=== PATIENT | female | born 1995 ===

== ENCOUNTER 2017-09-28 13:00 | Emergency (ER) | payer SELFPAY ==
--- NOTE | 2017-09-28 14:29 | OBHP ---
Datetime: 09/28/2017 14:24 IP Adm Impression: Term, intrauterine IP Admit Plan: Discharge home Admit Comment, IP Provider: at 39.6wek came with c/o ctxs started 11 pm, irrg , no vb,lof+fm.pt never went to any prental care. obhcx 1 x pmh de med pnv all nkda psh de soch de ve closed//-3 a/p at abdominal pain dc home labor given po hy f/u in clinic in 1-2days Pelvic Type - PN: Adequate Extremities - PN: Normal Abdomen - PN: Normal Back - PN: Normal Breast - PN: Normal Lungs - PN: Normal Heart - PN: Normal Thyroid - PN: Normal Neurologic - PN: Normal HEENT - PN: Normal General - PN: Normal FHR - Baseline A Provider: 120 Contraction Comments Provider: irrg EGA AdmitDate IP: 39.6 Vital Signs Provider: Reviewed; Within Normal Limits IP Chief Complaint: Uterine contractions NICHD Variability Prov Fetus A: Moderate 6-25bpm NICHD Accel Fetus A IP Provider: 15X15 FHR Category Provider Fetus A: Category I Dilatation, Provider: 0 Effacement, Provider: 0 Station, Provider: -3 Genitourinary Exam: Normal DTRs - PN: Normal
--- NOTE | 2017-09-28 14:31 | OBDCSUM ---
Datetime: 09/28/2017 14:27 Discharged to, Provider: Home Follow up at, Provider: 1 day Follow up in weeks, Provider: clinic Disch Activity Restrictions: Minimize walking; Minimize stair-climbing; No sexual activity; Nothing in vagina - [place], tampons, douche Discharge Comment, Provider: dc home labor given po hy f/u in clinic in 1-2days Discharge Diagnosis Prov Other: false labor nst
== END 2017-09-28 14:40 | disposition home or self-care (01) ==
LOC: C.EROB 13:00
DX: O47.1 False labor at or after 37 completed weeks of gestation (principal); Z3A.39 39 weeks gestation of pregnancy

== ENCOUNTER 2017-09-29 07:40 | Inpatient (IN) | payer MEDICAID ==
[2017-09-29 08:58] VITALS: BMI 28.3
[2017-09-29] MEDS ORDERED: Lactated Ringer's 1,000 ML IV SCH (09:15)
[2017-09-29 09:52] LABS: BASO % 0.4 % (0.0-2.0); EOS % 0.1 % (0.0-4.0); HEMOGLOBIN 10.7 g/dL (11.0-16.0); LYMPH # 1.1 K/uL (1.0-4.3); LYMPH % 17.1 % (20.0-40.0); MEAN CELL VOLUME 91.6 fL (81.0-99.0); MEAN CORPUSCULAR HEMOGLOBIN 31.1 pg (27.0-31.0); MEAN CORPUSCULAR HGB CONC 33.9 g/dL (33.0-37.0); MEAN PLATELET VOLUME 10.6 fL (7.2-11.7); MONO # 0.3 K/uL (0.0-0.8); MONO % 4.8 % (0.0-10.0); NEUT # 4.9 K/uL (1.8-7.0); NEUT % 77.6 % (50.0-75.0); NRBC % 0.1 % (0.0-2.0); RBC 3.45 Mil/uL (3.80-5.20); RED CELL DISTRIBUTION WIDTH 13.7 % (11.5-14.5); WHITE BLOOD COUNT 6.3 K/uL (4.8-10.8)
[2017-09-29] MEDS ORDERED: Penicillin G 5 Million Unit Vial IVPB ONE ×2 (10:00→11:03)
[2017-09-29 10:08] LABS: ALBUMIN 3.4 g/dL (3.5-5.0); ALT/SGPT 15 U/L (9-52); AST/SGOT 22 U/L (14-36); BLOOD UREA NITROGEN 4 mg/dL (7-17); CALCIUM 8.7 mg/dl (8.6-10.4); GFR AFRICAN-AMERICAN > 60; GFR NON-AFRICAN AMERICAN > 60
[2017-09-29 10:35] LABS: BARBITURATES, UR NEGATIVE (NEGATIVE); BENZODIAZEPINES, UR NEGATIVE (NEGATIVE); OPIATES, UR NEGATIVE (NEGATIVE); PHENCYCLIDINE, UR NEGATIVE (NEGATIVE)
--- NOTE | 2017-09-29 11:22 | US ---
Date of service: 09/29/2017 PROCEDURE: Obstetrical ultrasound and limited biophysical profile examination HISTORY: Term COMPARISON: Not available TECHNIQUE: Transabdominal FINDINGS: Ultrasound examination demonstrates a single live intrauterine gestation in cephalic presentation. The heart rate is 133 beats per minute. A grossly normal quantity of amniotic fluid is visualized. The CORIE is 7.8 cm. A posterior placenta is identified. There is no evidence of placenta previa. The cervix is slightly shortened, measuring 2.3 cm in length. biometry yields a gestational age by ultrasound of 36 weeks 2 days. The KENNEDI by ultrasound is 10/25/2017. Estimated weight is 2894 g. Limited review of anatomy demonstrates a 4 chamber heart. A three-vessel umbilical cord is identified. The anterior abdominal wall is intact. Two normal kidneys are demonstrated without evidence of hydronephrosis. There is fluid distending the stomach and urinary bladder. No abnormality of the spine is evident. Umbilical arterial duplex Doppler evaluation demonstrates S/D ratio of 1.9, within normal limits. A limited biophysical profile examination yields a score of 8 out of 8. IMPRESSION: Single live intrauterine gestation in cephalic presentation. heart rate 133. No previa. Posterior placenta. Cervix shortened to 2.3 cm length. No gross anatomic abnormality. Normal biophysical profile score. Estimated weight 2894 g. KENNEDI 10/25/2017.
[2017-09-29 12:11] LABS: SQUAMOUS EPITHIAL 18 /hpf (0-5); URINE BACTERIA RARE (<OCC); URINE BILIRUBIN NEGATIVE (NEGATIVE); URINE BLOOD NEGATIVE (NEGATIVE); URINE CLARITY Hazy (Clear); URINE COLOR Yellow (YELLOW); URINE GLUCOSE (UA) NORMAL (Normal); URINE LEUKOCYTE ESTERASE TRACE Leu/uL (Negative); URINE PROTEIN 1+ mg/dL (NEGATIVE); URINE UROBILINOGEN NORMAL mg/dL (0.2-1.0)
[2017-09-29] MEDS ORDERED: Bupivacaine HCl/FentaNYL Cit 100 ML EPI ONE (12:28)
[2017-09-29] MEDS ORDERED: Penicillin G 5 Million Unit Vial IVPB SCH (14:00)
[2017-09-29] MEDS ORDERED: Oxytocin 30 UNIT 30 UNITS/500 ML BAG IV ONE (14:29)
[2017-09-29] MEDS ORDERED: Oxytocin 30 UNIT 30 UNITS/500 ML BAG IV SCH (14:30)
--- NOTE | 2017-09-29 14:44 | OBHP ---
Datetime: 09/29/2017 08:20 IP Adm Impression: Term, intrauterine ; Intact Membranes IP Admit Plan: Observation/Evaluation Admit Comment, IP Provider: 21 yo female with an IUP at 40 weeks per 23 weeks US done in [facility] with EDC 09/29/17 Came to this [place] 2 weeks ago and had only minimal PNC overthere Admits to adequate FM and denies LOF or vaginal bleeding Admit to CAROLINE, Draw WI labs and order OB US NST and Continuous Mnitoring Pelvic Type - PN: Adequate Extremities - PN: Normal Abdomen - PN: Normal Back - PN: Normal Breast - PN: Not Done Lungs - PN: Normal Heart - PN: Normal Thyroid - PN: Normal Neurologic - PN: Normal HEENT - PN: Normal General - PN: Normal Presentation-Admit: Vertex FHR - Baseline A Provider: 130 Membranes, Provider: Intact Contraction Comments Provider: Q 3-5 minutes Gestation - Est Wks by US: 40.0 EGA AdmitDate IP: 40.0 Vital Signs Provider: Reviewed IP Chief Complaint: Uterine contractions; Maternal discomfort; evaluation NICHD Variability Prov Fetus A: Moderate 6-25bpm NICHD Accel Fetus A IP Provider: 10X10 NICHD Decel Fetus A IP Provider: None Dilatation, Provider: 2 Effacement, Provider: 50 Station, Provider: -3 Genitourinary Exam: Normal DTRs - PN: Normal
[2017-09-29] MEDS ORDERED: Penicillin G Potassium 2.5 MU in Dextrose 5% In Water 50 ML IVPB SCH (16:00)
[2017-09-29 16:28] LABS: RAPID PLASMA REAGIN NONREACTIVE (NONREACTIVE)
--- NOTE | 2017-09-29 16:28 | OBADHP ---
Datetime: 09/29/2017 12:15 Admit Comment, IP Provider: 40 weeks per 23 weeks US OB US done here and revealed an IUP at about 36 3/7 weeks by size with CORIE 7.8 and BPP 8/8 Probable SGA vs IUGR and Low Amniotic fluid Index. Denies leaking of fluid VSS/Afebrile Early labor Admit for Vaginal delivery Will start Pitocin for Augmentation of labor in no major progress Pelvic Type - PN: Adequate Extremities - PN: Normal Abdomen - PN: Normal Back - PN: Normal Breast - PN: Not Done Lungs - PN: Normal Heart - PN: Normal Thyroid - PN: Normal Neurologic - PN: Normal HEENT - PN: Normal General - PN: Normal Presentation-Admit: Vertex FHR - Baseline A Provider: 130 Membranes, Provider: Intact Contraction Comments Provider: Q 2-4 mins Gestation - Est Wks by US: 40.0 IP Chief Complaint: Uterine contractions; Maternal discomfort NICHD Variability Prov Fetus A: Moderate 6-25bpm NICHD Accel Fetus A IP Provider: 10X10 FHR Category Provider Fetus A: Category I NICHD Decel Fetus A IP Provider: None Dilatation, Provider: 4 Effacement, Provider: 70 Station, Provider: -2 Genitourinary Exam: Normal DTRs - PN: Normal EGA AdmitDate IP: 40.0 IP Adm Impression: Term, intrauterine ; Intact Membranes IP Admit Plan: Admit to unit; Initiate labor protocol Datetime: 09/29/2017 08:20 Vital Signs Provider: Reviewed
--- NOTE | 2017-09-29 21:49 | OBDS ---
MATERNAL INFORMATION Provider Comments: of viable Male from SALVATORE position and over a Midline Episiotomy. Pedia trician present and Apgars 9 and 9 at 1 and 5 minutes. BW 8lbs 10 oz. Pt and both tolerated the procedure well and remained in S_S condition LABOR SUMMARY EDC: 09/29/2017 00:00 LABOR INFORMATION Onset of Labor: 09/29/2017 08:15 Group B Beta Strep: Not Done MEMBRANES Membranes Rupture Method: Artificial Amniotic Fluid Amount: None STAGES OF LABOR Stage 3 hrs: 0 Stage 3 min: 5 Total Time in Labor hrs: 12 Total Time in Labor min: 41 VAGINAL DELIVERY Episiotomy: Median Laceration Type: None Laceration Repair Note: 2-0 Vicryl utilized for repair with injection of 1 % Lidocaine for Local Ane sthesia and without complications. Sponge Count Correct: Yes Sharps Count Correct: Yes Count Comment: Correct BABY A INFORMATION Infant Delivery Date/Time: 09/29/2017 20:51 Method of Delivery: Vaginal Born in Route : No : N/A Forceps: N/A Vacuum Extraction: N/A Shoulder Dystocia : No SHOULDER DYSTOCIA BABY A Infant Delivery Date/Time: 09/29/2017 20:51 PRESENTATION/POSITION BABY A Presentation: Cephalic Cephalic Presentation: Vertex Vertex Position: Left Occipital Anterior Breech Presentation: N/A PLACENTA INFORMATION BABY A Placenta Delivery Time : 09/29/2017 20:56 INFORMATION BABY A Gestational Age at Delivery: 40.0 Gestational Status: Term Outcome : Liveborn Condition : Stable Sex: Male IDENTIFICATION/MEDS BABY A ID Band Number: [id number] Sensor Number: [id number] WEIGHT/LENGTH BABY A Birthweight (gms): 3920 Weight (lb): 8 Weight (oz): 10 Length Inches: 20.50 Infant Length cms: 52.1 CORD INFORMATION BABY A No. Cord Vessels: 3 Nuchal Cord : N/A Cord Blood Taken: Yes
[2017-09-30] MEDS ORDERED: Benzocaine/Menthol 20%-0.5% Topical Spray (60 ml) TOP PRN (00:41)
[2017-09-30] MEDS ORDERED: Oxycodone/Acetaminophen 5/325 mg Tab PO PRN (00:41)
[2017-09-30 08:42] LABS: HEMOGLOBIN 8.8 g/dL (11.0-16.0); MEAN CELL VOLUME 92.3 fL (81.0-99.0); MEAN CORPUSCULAR HGB CONC 33.6 g/dL (33.0-37.0); MEAN PLATELET VOLUME 9.7 fL (7.2-11.7); RBC 2.82 Mil/uL (3.80-5.20); RED CELL DISTRIBUTION WIDTH 13.9 % (11.5-14.5)
[2017-09-30 08:43] LABS: WHITE BLOOD COUNT 11.2 K/uL (4.8-10.8)
[2017-09-30] MEDS: Multiple Vitamins Tab PO SCH (09:55)
[2017-09-30] MEDS: Hydrocortisone 2.5% Rectal Cream(30 gm) PR SCH ×2 (09:57→18:16)
--- NOTE | 2017-09-30 11:08 | OBPPN ---
Datetime: 09/30/2017 10:53 PP Pain Prov: Within normal limits PP Nausea Prov: Denies PP Flatus Prov: Yes PP BM Prov: No PP Breasts Prov: Normal PP Heart Prov: Normal PP Lungs Prov: Normal PP Abdomen/Uterus Prov: Normal PP Lochia Prov: Normal PP Vulva/Perineum Prov: Normal PP CVA Tenderness Prov: Normal PP Extremities Prov: Normal PP C/S Incision Prov: Not Applicable PP Progress Prov: Normal PP Comments Phys Exam Prov: Breasts: no cracked nipples Perineum: healing episiotomy; minimally tneder; edema imporving. (+) external hemorrhoid Abdomen: Soft, Non distended. Fundus firm, mobile, non tender at umbilicus. Mild lochia rubra Extremities: no calf tenderness All other systems reviewed and are negative PP Impression Prov: Normal progression PP Plan Prov: Continue present management PP Progress Note Prov: Patietn received in room 454, ambulating. Reports perineal discomfort -improv ed with pain meds. exclusively. Ambulating; voiding without difficulty. (+) flatus; (-) BM. Denies nausea, vomiting P.E.: as above. Small, in NAD. Awake, alert, oriented to time, person and place. Pleasant and co operative. - PPD#1 H/H 8.8. 26.0; Rh (+) Assessment: PPD#1, 22 y.o. P2, S/P over midline episiotomy; external hemorrhoid - doing well. Afebrile, vital signs stable. Clinically stable Plan: 1) Continue present management 2) Start iron supplementaiton 3) Anticipate vaginal deliveyr 10/01/17 Vital Signs Provider PP: Reviewed; Within Normal Limits
--- NOTE | 2017-10-01 07:37 | OBPPN ---
Datetime: 10/01/2017 07:25 PP Pain Prov: Within normal limits PP Nausea Prov: Denies PP Flatus Prov: Yes PP Heart Prov: Normal PP Lungs Prov: Normal PP Abdomen/Uterus Prov: Normal PP Lochia Prov: Normal PP Extremities Prov: Normal PP Progress Prov: Normal PP Impression Prov: Normal progression PP Plan Prov: Continue present management PP Progress Note Prov: pt was seen at bed side, pain under control,no n.v, tolerating diet, passing flatus, locia improving. breast feeding every 2 hous. ppd#2 s/p cont pain management obnt post op care encourage ambulation Vital Signs Provider PP: Reviewed; Within Normal Limits
[2017-10-01] MEDS: Hydrocortisone 2.5% Rectal Cream(30 gm) PR SCH ×2 (09:33→10:00)
[2017-10-01] MEDS: Multiple Vitamins Tab PO SCH (09:41)
[2017-10-01 11:08] VITALS: O2SAT 99
[2017-10-02 08:33] VITALS: BP 95/54; PULSE 74; RESP 18; TEMP 98.4
[2017-10-02] MEDS ORDERED: Rubella Virus Vaccine Inj SC ONE (10:41)
[2017-10-02] MEDS ORDERED: Measles, Mumps, and Rubella 0.5 ML VIAL SC ONE (10:53)
[2017-10-02] MEDS: Multiple Vitamins Tab PO SCH (10:53)
[2017-10-02] MEDS: Hydrocortisone 2.5% Rectal Cream(30 gm) PR SCH (10:54)
[2017-10-02 11:42] LABS: HEMOGLOBIN 9.8 g/dL (11.0-16.0); MEAN CORPUSCULAR HEMOGLOBIN 31.4 pg (27.0-31.0); MEAN CORPUSCULAR HGB CONC 33.8 g/dL (33.0-37.0); MEAN PLATELET VOLUME 9.2 fL (7.2-11.7); RBC 3.12 Mil/uL (3.80-5.20); RED CELL DISTRIBUTION WIDTH 13.9 % (11.5-14.5); WHITE BLOOD COUNT 8.7 K/uL (4.8-10.8)
--- NOTE | 2017-10-02 18:18 | OBDCSUM ---
Datetime: 10/02/2017 13:15 Discharged to, Provider: Home Follow up at, Provider: gunjan [place] Instr Activity: Normal activity Disch Instr Diet: Regular Discharge Instructions, Provider: Routine instructions given Discharge Diagnosis, Provider: Term Delivered Discharge Time: 10/02/2017 14:00 Follow up in weeks, Provider: 6 weeks Disch Referrals: Professor Of Theatre Contraception discussed, Prov: Yes Disch Activity Restrictions: No lifting; Minimize stair-climbing; No sexual activity; Nothing in vag berta - [place], tampons, douche Discharge Diagnosis Prov Other: Insufficient care Rubella - equivocal Contraception counseling Chronic anemia Contraception after Delivery: Depo-Provera
--- NOTE | 2017-10-02 18:21 | OBPPN ---
Datetime: 10/02/2017 18:06 PP Pain Prov: Within normal limits PP Nausea Prov: Denies PP Flatus Prov: Yes PP BM Prov: Yes PP Breasts Prov: Normal PP Heart Prov: Normal PP Lungs Prov: Normal PP Abdomen/Uterus Prov: Normal PP Lochia Prov: Normal PP Vulva/Perineum Prov: Normal PP CVA Tenderness Prov: Normal PP Extremities Prov: Normal PP C/S Incision Prov: Not Applicable PP Progress Prov: Normal PP Comments Phys Exam Prov: Abdomen: Soft. Non distended. fundus firm, mobile, non tender, 18 weeks. [place] lochia rubra Extremities: no calf tenderness All other systems reviewed and are negative PP Impression Prov: Normal progression PP Plan Prov: Discharge PP Progress Note Prov: Patient evaluated at approximately 1055 hours; received in bed in room 454. exclusively. Voiding and ambulating without difficulty. Denies headaches, lightheadedne ss, dizziness, chest pain or paliptaitona. Denies nausea, vomiting. (+) flatus, (+)BM P.E.: as above. Small, in NAD. Awake, alert, oriented to time, person and place. 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 - PPD#3 H/H 9.8/29.8 Assessment: PPD#3, 22 y.o. P2, S/P . Afebrile, vital signs stable. Acute blood loss anemia - as ymptomatic after overnight observation. Rubella equivocal. Patient desires to use depoProvera for co ntraception. Clinically stable. Plan: 1) Discharge home 2) MMR vaccine, prior to discharge 3) See full discharge instructions Vital Signs Provider PP: Reviewed; Within Normal Limits
== END 2017-10-02 15:50 | disposition home or self-care (01) | DRG 775 ==
LOC: C.EROB 07:40 → C.4D 08:26 → C.4M 09-30 00:20
PROVIDERS: ADMIT Obstetrics & Gynecology; ATTEND Obstetrics & Gynecology
PROC: 10E0XZZ Delivery of Products of Conception, External Approach (ICD-10-PCS; principal; 2017-09-29)
PROC: 0W8NXZZ Division of Female Perineum, External Approach (ICD-10-PCS; 2017-09-29)
PROC: 10907ZC Drainage of Amniotic Fluid, Therapeutic from Products of Conception, Via Natural or Artificial Opening (ICD-10-PCS; 2017-09-29)
DX: O99.02 Anemia complicating childbirth (principal); D62 Acute posthemorrhagic anemia; Z3A.40 40 weeks gestation of pregnancy; Z37.0 Single live birth; O75.89 Other specified complications of labor and delivery; K64.4 Residual hemorrhoidal skin tags; D64.9 Anemia, unspecified